=== PATIENT | female | born 1980 | race Caucasian/White ===

== ENCOUNTER → 2020-04-10 | Outpatient (CLI) | payer OTHER ==
--- NOTE | 2020-04-10 09:23 | MM ---
Reason for exam: screening (asymptomatic). Baseline mammogram. Physical Findings: Nurse Summary: 0.3cm nodule in the left breast at 9 o'clock (nurse TM). MG Screening Mammo w CAD Bilateral CC and MLO view(s) were taken. The breast tissue is heterogeneously dense. This may lower the sensitivity of mammography. There is no discrete abnormality. Palpable marker 9 o'clock left breast. These results were verbally communicated with the patient and result sheet given to the patient on 04/10/20. ASSESSMENT: Incomplete: need additional imaging evaluation, BI-RAD 0 RECOMMENDATION: Ultrasound of the left breast. (9 o'clock palpable)
--- NOTE | 2020-04-10 09:25 | USB ---
Reason for exam: additional evaluation requested from abnormal screening. Physical Findings: Breast exam preformed at baseline screening. US Breast Workup Limited LT Left limited breast ultrasound including focal area of concern, retroareolar and axilla demonstrates no cystic or solid lesion seen. Scanned 8-9 o'clock at palpable site. Palpated by jaquan. These results were verbally communicated with the patient and result sheet given to the patient on 04/10/20. ASSESSMENT: Benign, BI-RAD 2 RECOMMENDATION: Return to routine screening mammogram schedule for both breasts. Manage on a clinical basis with regard to any suspicious palpable.
== END | disposition home or self-care (01) ==
LOC: RADMAMWWP 08:00
PROVIDERS: ATTEND Family Medicine
DX: Z12.31 Encounter for screening mammogram for malignant neoplasm of breast (principal); N63.20 Unspecified lump in the left breast, unspecified quadrant
CPT/HCPCS: 77067

== ENCOUNTER → 2020-04-14 | Outpatient (CLI) | payer OTHER ==
--- NOTE | 2020-04-16 09:54 | US ---
EXAMINATION TYPE: US pelvis complete transvag DATE OF EXAM: 04/14/2020 COMPARISON: NONE CLINICAL HISTORY: E28.1 Androgen excess. irregular menses TECHNIQUE: Transvaginal (TV) and Transabdominal (TA) . Transabdominal sonographic images of the pel vis were acquired. Transvaginal sonographic images were medically necessary to better assess the fol lowing anatomy: endometrium and ovaries Date of LMP: 04/09/20 EXAM MEASUREMENTS: Uterus: 10.0 x 3.9 x 4.9 cm Endometrial Stripe: 0.6 cm Right Ovary: 2.7 x 1.3 x 1.5 cm Left Ovary: unable to visualize 1. Uterus: Anteverted Nabothian cysts. heterogeneous myometrium 2. Endometrium: appears wnl 3. Right Ovary: wnl 4. Left Ovary: Obscured by overlying bowel gas 5. Bilateral Adnexa: appears wnl 6. Posterior cul-de-sac: wnl IMPRESSION: Exam is somewhat limited. Nabothian cysts are noted.
== END | disposition home or self-care (01) ==
LOC: RADUSWWP 16:19
PROVIDERS: ATTEND Family Medicine
DX: N88.8 Other specified noninflammatory disorders of cervix uteri (principal)
CPT/HCPCS: 76830; 76856